=== PATIENT | male | born 1980 | race Caucasian/White ===

== ENCOUNTER 2020-12-30 04:25 | Emergency (ER) | payer OTHER ==
[2020-12-30 06:09] LABS: BASOPHIL 0.5 % (0-2); EOSINOPHIL 3.9 % (0-5); HCT 49.2 % (42.0-52.0); HGB 16.5 g/dl (13.2-18.0); LYMPHOCYTE 32.9 % (15-48); MCH 29.4 pg (25.0-31.0); MCHC 33.5 g/dL (32.0-36.0); MCV 87.7 fL (78.0-100.0); MONOCYTE 7.9 % (0-12); MPV 9.7 fL (6.0-9.5); NEUTROPHIL 54.5 % (41-80); NRBC 0; PLT 281 K/uL (150-400); RBC 5.61 M/uL (4.70-6.00); RDW 12.6 % (11.5-14.0); WBC 6.2 K/uL (4.0-10.5)
[2020-12-30 06:43] LABS: ALBUMIN 3.8 g/dL (3.4-5.0); ALKALINE PHOSHATASE 46 U/L (46-116); ALT 33 U/L (16-63); AST 17 U/L (15-37); BILIRUBIN - TOTAL 0.3 mg/dL (0.2-1.0); BUN 13 mg/dL (7-18); BUN/CREAT RATIO (CALC) 14.3 RATIO; CHLORIDE 106 mmol/L (98-107); CO2 (BICARBONATE) 26 mmol/L (21-32); CREATININE 0.91 mg/dL (0.67-1.17); GLOBULIN (CALCULATION) 3.6 g/dL; GLUCOSE 121 mg/dL (74-106); POTASSIUM 3.7 mmol/L (3.5-5.1); TOTAL PROTEIN 7.4 g/dL (6.4-8.2)
[2020-12-30 06:45] LABS: C-REACTIVE PROTEIN < 0.30 mg/dL (<=0.90)
== END 2020-12-30 08:15 | disposition other institution (70) ==
LOC: FER 04:25
PROVIDERS: Emergency Medicine Emergency Medical Services
DX: R20.0 Anesthesia of skin (principal); L29.9 Pruritus, unspecified; J45.909 Unspecified asthma, uncomplicated; Z91.040 Latex allergy status; Z88.0 Allergy status to penicillin; Z88.8 Allergy status to other drugs, medicaments and biological substances; Z91.018 Allergy to other foods; Z91.038 Other insect allergy status
CPT/HCPCS: 36415; 70450; 80053; 83735; 84439; 84443; 85025; 86140; J1200; J2405; J2930; J7120